=== PATIENT | female | born 1975 | race Caucasian/White ===

== ENCOUNTER 2017-06-20 11:38 | Emergency (ER) | payer MEDICAID ==
[~2017-06-20] VITALS: Ht 157.5 cm; Wt 58.5 kg
[2017-06-20 11:47] VITALS: Ht 157.5 cm; Wt 58.5 kg
[2017-06-20 13:55] LABS: BASOPHIL % 0.4 % (0-2); PLATELET COUNT 342 x10^3mcL (130-400)
[2017-06-20 14:10] LABS: RED CELL DISTRIBUTION WIDTH 16.2 % (11.5-14.5)
[2017-06-20 15:46] VITALS: BP 116/66
== END 2017-06-20 15:46 | disposition home or self-care (01) ==
LOC: ED 11:38
PROVIDERS: Emergency Medicine
DX: J06.9 Acute upper respiratory infection, unspecified (principal); B99.8 Other infectious disease
CPT/HCPCS: 36415